=== PATIENT | female | born 1990 | race Caucasian/White ===

== ENCOUNTER → 2017-01-21 | Outpatient (CLI) | payer MEDICAID ==
[~2017-01-21] MED LIST: ALBUAER3 INH; BREAST PUMP1 MI1; MIRA3350 PO; OXYC1TAB63 PO; SENN1TAB PO; subutex
== END ==
LOC: HPND 09:22
PROVIDERS: ATTEND Family Medicine
DX: O99.322 Drug use complicating pregnancy, second trimester (principal); O09.292 Supervision of pregnancy with other poor reproductive or obstetric history, second trimester
CPT/HCPCS: 76811; 76825; 76827; 93325

== ENCOUNTER → 2017-02-27 | Outpatient (CLI) | payer MEDICAID | LOC: HPND 08:09 | PROVIDERS: ATTEND Family Medicine | DX: O99.320 Drug use complicating pregnancy, unspecified trimester (principal); Z3A.00 Weeks of gestation of pregnancy not specified | CPT/HCPCS: 76816 ==

== ENCOUNTER 2017-03-28 09:10 | Inpatient (IN) | payer MEDICAID ==
[~2017-03-28] VITALS: Ht 177.8 cm; Wt 80.3 kg
[2017-03-28] VITALS (36 sets, daily range): BP systolic 79–144; BP diastolic 43–91; PULSE 16–117; RESP 12–18; TEMP 97.8–99.2; O2SAT 99–100
[2017-03-28] MEDS: LACTATED RINGER'S 1000 ML INJ 1,000 ML IV SCH ×4 (00:30→16:49)
[~2017-03-28 09:10] MED LIST changes: -BREAST PUMP1 MI1; -MIRA3350 PO; -OXYC1TAB63 PO; -SENN1TAB PO
[2017-03-28] MEDS ORDERED: LACTATED RINGER'S 1000 ML INJ 1,000 ML IV ONE ×3 (09:20→23:45)
--- NOTE | 2017-03-28 09:29 | HHI.HP ---
HPI Chief Complaint Repeat and BTL. Date Seen: Mar 28, 2017 (Marta Angel MD R2) Travel History International Travel<30 Days: No Contact w/Intl Traveler<30Days: No (Marta Angel MD R2) History of Present Illness HPI Patient is a 26 year old at 39-0/7 weeks gestation who presents today for repeat and bilateral tubal ligation. She denies any vaginal bleeding but endorses vaginal discharge of mucous for the past several days. Yesterday at 3 PM she noticed leaking fluid that worsened when she coughed. Positive movement. Occasional contractions. care with [facility]. Current is complicated by history of drug addiction ( currently on Subutex) and an admission for PPROM/bleeding at 17 wks but membranes subsequently resealed and has progressed normally. Of note, patient has decided that she does not want the bilateral tubal ligation. (Marta Angel MD R2) History Past Medical History Narrative Medical Drug abuse Asthma with occasional rescue inhaler use (Marta Angel MD R2) Obstetric History Obstetric History for breech presentation in 2014 Elective (Marta Angel MD R2) Past Surgical History Narrative Surgical D&C (Marta Angel MD R2) Family History Family History: Negative (Marta Angel MD R2) Social History Alcohol Use: No Tobacco Use: Yes (8 cigarettes/week) Substance Abuse: No (Marta Angel MD R2) Allergies-Medications (Allergen,Severity, Reaction): Coded Allergies: Naproxen (Verified Allergy, Severe, HEART RACING, 03/17/17) Home Meds Reported Medications [subutex] No Conflict CheckUnknown Dose 12/24/16 Albuterol 8.5 GM Inh (Proair Hfa 8.5 GM Inh)90 Mcg/Act Aer1 Puff INH Q4H PRN ( SHORTNESS OF BREATH) #1 INHALER Ref 0 108 mcg/actuation 12/24/16 Review of Systems Except as stated in HPI: all other systems reviewed are Neg General / Constitutional: No: Fever, Chills Eyes: No: Blurred Vision, Visual changes HENT: No: Headaches Cardiovascular: No: Chest Pain or Discomfort Respiratory: No: Short of Breath Gastrointestinal: No: Abdominal Pain Genitourinary: Discharge, No: Pelvic Pain, Vaginal Bleeding Musculoskeletal: No: Edema Neurologic: No: Headache Psychiatric: No: Substance Abuse (Marta Angel MD R2) Physical Exam Narrative GENERAL: Well-nourished, well-developed patient. SKIN: Warm and dry. HEAD: Normocephalic and atraumatic. EYES: No scleral icterus. No injection or drainage. ENT: No nasal drainage noted. Mucous membranes pink. Airway patent. NECK: Supple, trachea midline. No JVD. CARDIOVASCULAR: Regular rate and rhythm without murmurs, gallops, or rubs. RESPIRATORY: Breath sounds equal bilaterally. No accessory muscle use. ABDOMEN/GI: Abdomen soft, non-tender, bowel sounds present, no rebound, no guarding Gravid to 39 weeks size GENITOURINARY: Cervix: Midposition Dilation: 4 Effacement: 90 Station: 0 Presentation: vertex Membranes: intact Uterine Contractions: q5-6min Membranes: SROM, clear fluid FHT's: Category: I Baseline: 142 Reactive: + Variability: moderate Decels: none EXTREMITIES: No cyanosis or edema. BACK: Nontender without obvious deformity. No CVA tenderness. NEUROLOGICAL: Awake and alert. Motor and sensory grossly within normal limits. Normal speech. (Marta Angel MD R2) Data Data Vital Signs Reviewed: Yes Orders Admit To Inpatient (03/28/17 ) Code Status (03/28/17 09:20) Vital Signs (Adult) .ON ADMISSION (03/28/17 09:20) Activity Oob Ad Hanna (03/28/17 09:20) Heart (03/28/17 09:20) Urinary Catheter Management BERNARD.Q8H (03/28/17 09:20) ^ Preps (03/28/17 09:20) Scd / Collin / Foot Pump BERNARD.QSHIFT (03/28/17 09:20) ^ Ultrasound For Locatio (03/28/17 09:20) Diet Npo (03/28/17 Breakfast) Lactated Ringer's 1000 Ml Inj (Lr 1000 M (03/28/17 09:20) Lactated Ringer's 1000 Ml Inj (Lr 1000 M (03/28/17 09:50) Citric Acid-Sodium Citrate Liq (Bicitra (03/28/17 11:00) Type And Screen (03/28/17 09:20) Complete Blood Count With Diff (03/28/17 09:20) Urinalysis - C+S If Indicated (03/28/17 09:20) Cefazolin Inj (Ancef Inj) (03/28/17 10:30) Inpatient Certification (03/28/17 ) Specimen To Be Collected PRN (03/28/17 09:20) (Marta Angel MD R2) Assessment/Plan Assessment and Plan 26 year old at 39-0/7 weeks gestation. 1. IUP- Category I tracing, reassuring. 2. SROM- grossly ruptured and amnisure positive. Counseling and education provided regarding possibility of TOLAC/ as she spontaneously went into labor. All questions and concerns were addressed. After thorough discussion, patient continues to desire repeat . 3. Repeat without BTL as patient has decided to forgo the BTL 4. GBS negative 5. History of Drug Abuse- on Subutex 8mg PO daily. Obtain UDS. dw Dr. Leija (Marta Angel MD R2) Collaborating MD Comments Agree with assessment and management (Meera Leija MD) Marta Angel MD R2 Mar 28, 2017 09:29 Meera Leija MD Mar 29, 2017 09:17
[2017-03-28 09:45] LABS: AUTOMATED NEUTROPHIL # 10.9 TH/MM3 (1.8-7.7); BASOPHIL # 0.1 TH/MM3 (0-0.2); BASOPHIL % 0.6 % (0.0-2.0); EOSINOPHIL # 0.2 TH/MM3 (0-0.4); EOSINOPHIL % 1.2 % (0.0-4.0); HEMATOCRIT 31.9 % (35.0-46.0); HEMO FLAGS DIFF FINAL; LYMPH % 15.8 % (9.0-44.0); LYMPHOCYTE # 2.2 TH/MM3 (1.0-4.8); MEAN CORPUSCULAR HEMOGLOBIN 28.5 PG (27.0-34.0); MEAN CORPUSCULAR HGB CONC 34.4 % (32.0-36.0); MONO % 5.5 % (0.0-8.0); NEUT % 76.9 % (16.0-70.0); PLATELET COUNT 221 TH/MM3 (150-450); RED BLOOD COUNT 3.84 MIL/MM3 (4.00-5.30); WHITE BLOOD COUNT 14.1 TH/MM3 (4.0-11.0)
[2017-03-28 10:02] LABS: BACTERIA, URINE OCC /hpf; BLOOD, URINE LARGE (NEG); COMMENT (UR) CULT NOT INDICATED; CULTURE IF INDICATED CULT NOT INDICATED; GLUCOSE,URINE NEG (NEG); KETONE, URINE NEG (NEG); MUCUS URINE FEW /lpf (OCC); NITRITE,URINE NEG (NEG); SQUAMOUS EPITHELIAL CELL URINE 10 /hpf (0-5); URINE COLOR YELLOW (YELLW/STRAW)
[2017-03-28 10:36] LABS: AMPHETAMINE, URINE NEG (NEG); BARBITURATES, URINE NEG (NEG); COCAINE, URINE NEG (NEG)
[2017-03-28] MEDS ORDERED: OXYTOCIN 10 UNIT/ML AMP ONE (10:44)
[2017-03-28] MEDS ORDERED: CITRIC ACID-SODIUM CITRATE LIQ 30 ML UDC PO SCH (11:00)
--- NOTE | 2017-03-28 11:58 | PD.OB.DELI ---
Procedure Note Section Procedure Pre Op Diagnosis: (1) Gestational diabetes (2) 39 weeks gestation of (3) Previous delivery affecting , antepartum Post Op Diagnosis: Performed by Meera Leija Procedure: Repeat Low Transverse Sec Indication for delivery: Desired elective repeat Informed consent obtained: For anesthesia Confirmed correct: Time-out taken Anesthesia: Spinal Medication prior to procedure: As documented in eMAR Monitoring during procedure: Blood pressure monitoring, Pulse oximetry Urinary catheter: Inserted using sterile technique, To dependent drainage Sterile preparation: Duraprep, With drapes to expose affected area Position: Supine with wedge to left side Operative Features Skin Incision: Pfannenstiel Uterine Incision: Low transverse w/knife / blunt ext Membranes Ruptured: Artificially Presentation: Occiput anterior Time of : 11:19 Delivery of infant: Uneventful Infant: Female One Minute : 9 Five Minute : 9 Weight: 3120 Status of infant: Viable Placenta delivered: Intact Medications: Antibiotics Estimated blood loss: 600 Procedure tolerated: Well Maternal Condition: Stable Condition: Stable Meera Leija MD Mar 28, 2017 11:58
[2017-03-28] MEDS ORDERED: ACETAMINOPHEN 1000 MG/100 ML VIAL IV ONE ×2 (12:00→12:38)
[2017-03-28] MEDS ORDERED: OXYTOCIN 30 UNITS-500ML PREMIX 500 ML IV ONE (12:00)
[2017-03-28] MEDS ORDERED: ACETAMINOPHEN 325 MG TAB PO PRN (12:00)
[2017-03-28] MEDS ORDERED: SODIUM CHLORIDE 0.9% FLUSH 10 ML FLUSH IV FLUSH PRN (12:00)
[2017-03-28] MEDS ORDERED: oxyCODONE/ACETAMINOPHEN 5 MG/325 MG TAB PO PRN (12:00)
[2017-03-28] MEDS ORDERED: ONDANSETRON HCL 4 MG/2 ML VIAL IV PUSH PRN (12:00)
[2017-03-28] MEDS ORDERED: ZOLPIDEM TARTRATE 5 MG TAB PO PRN (12:00)
[2017-03-28] MEDS ORDERED: MIDAZOLAM HCL 2 MG/2 ML VIAL ONE (12:13)
[2017-03-28] MEDS ORDERED: MORPHINE SULFATE PF 5 MG/10 ML VIAL ONE (12:14)
[2017-03-28] MEDS ORDERED: OXYTOCIN 30 UNITS-500ML PREMIX 500 ML ONE (12:38)
[2017-03-28] MEDS ORDERED: DEXAMETHASONE SOD PHOS 4 MG/ML VIAL IV ONE (12:55)
[2017-03-28] MEDS ORDERED: ONDANSETRON HCL 4 MG/2 ML VIAL IV PUSH ONE (12:55)
[2017-03-28] MEDS ORDERED: EPIDURAL-NALOXONE HCL 0.4 MG/ML AMP IV PRN (13:15)
[2017-03-28] MEDS ORDERED: EPIDURAL-DIPHENHYDRAMINE HCL 50 MG/ML VIAL IV PUSH PRN (13:15)
[2017-03-28] MEDS ORDERED: EPIDURAL-DO NOT ADMINISTER ANTICOAGULANTS PRN (13:15)
[2017-03-28] MEDS ORDERED: EPIDURAL-DIPHENHYDRAMINE HCL 50 MG CAP PO PRN (13:15)
[2017-03-28] MEDS ORDERED: EPIDURAL-NO SYSTEMIC NARCOTICS PRN (13:15)
[2017-03-28] MEDS ORDERED: KETOROLAC TROMETHAMINE 30 MG/ML (IVP) VIAL IV PUSH ONE (13:45)
--- NOTE | 2017-03-28 17:05 | HHI.PR ---
RETAIL CLIENT MANAGER Note Note Called to see patient stat due to dizziness and vasovagal response. S/P c- section (repeat) at 11am, uncomplicated with 600-800 cc blood loss. Nurse was check fundal exam and performing fundal massage when patient felt "dizzy with blurry vision" and began shaking. Patient c/o uterine pain with palpation but is able to articulate verbally her symptoms. States that she feel better now with some residual dizziness. Has had approx 150cc vaginal bleeding after surgery but denies chest pain, nausea/vomiting, or shortness of breath O2 sat 98%, pulse 102, bp now 92/62 (initally 80/58) Chest CTA Abdomen - soft, fundus is appropriately tender and firm. No rebound, no fluid wave. Dressing partially removed with no bleeding. No vaginal bleeding noted Assess: Possible vasovagal response, patient is improving without intervention Bolus fluids Check stat BMP and H&H to r/o intraabdominal bleeding Meera Leija MD Mar 28, 2017 17:05
[2017-03-28 17:16] LABS: HEMATOCRIT 25.6 % (35.0-46.0)
[2017-03-28 17:39] LABS: BICARBONATE 23.6 MEQ/L (21.0-32.0); POTASSIUM 4.4 MEQ/L (3.5-5.1)
[2017-03-28 20:30] LABS: HEMATOCRIT 21.6 % (35.0-46.0); REVIEW FLAG FINAL
--- NOTE | 2017-03-28 21:47 | HHI.PR ---
PRESSER ALL AROUND Note Note Patient seen and evaluated. See previous progress note. Patient has minimal complaints, some abdominal pain noted. Pulse 92, BP 92/72, O2 sat 98% Chest CTA Abdomen - Soft, some deviation of fundus to right side. No rebound tenderness noted. Good BS Uterus firm, no vaginal bleeding noted. Hct 31 to 25% to 21% Suspect intraabdominal bleed given her drop in Hct Discussed with patient need for exploration. No rooms available in Main OR due to multiple trauma. Will take patient back to L&D operating room. Meera Leija MD Mar 28, 2017 21:47
[2017-03-28] MEDS ORDERED: OXYTOCIN 30 UNITS-500ML PREMIX 500 ML IV PRN (22:00)
[2017-03-28] MEDS ORDERED: KETOROLAC TROMETHAMINE 30 MG/ML (IVP) VIAL IV PUSH PRN ×2 (22:00)
[2017-03-28] MEDS ORDERED: ceFAZolin INJ 1,000 MG VIAL ONE (22:03)
[2017-03-28] MEDS ORDERED: METHYLERGONOVINE MALEATE 0.2 MG/ML VIAL ONE (23:06)
[2017-03-28] MEDS ORDERED: DO NOT ADM ANY ANTICOAGULANT DRUGS PRN (23:45)
--- NOTE | 2017-03-28 23:52 | HHI.PR ---
Immediate Post Op Note Procedure Date: Mar 28, 2017 Pre Op Diagnosis: Post op with worsening anemia Probable intra-abdominal bleeding Post Op Diagnosis: Left uterine incision bleeding with hematoma that progressed into retroperitoneum Surgeon: Meera Leija Processing Technologist(s): OR staff Procedure: Exploratory laparotomy Evacuation of hematoma Suture of uterine incision Findings: 1. Large hematoma beginning in the uterovesico peritoneum, extending to left retroperitoneum 2. Left uterine incision corner with active bleeding 3. Normal left retroperitoneum inspection with hemostasis after ligation Additional Information: Dr Joslyn Macias consulted intraop to explore the left retroperitoneum and confirm hemostasis Estimated blood loss: 1200cc blood loss which includes the hematoma Anesthesia: General Drains: KATIE, Other (Walker catheter - 120cc) PRBC (2 units transfused intraop) Patient to: PACU Patient Condition: Good Meera Leija MD Mar 28, 2017 23:51
[2017-03-28] MEDS ORDERED: MORPHINE SULFATE 4 MG/ML INJ ONE (23:55)
[2017-03-28] MEDS ORDERED: ONDANSETRON HCL 4 MG/2 ML VIAL ONE (23:55)
[2017-03-29] VITALS (11 sets, daily range): BP systolic 110–137; BP diastolic 49–75; PULSE 76–88; RESP 14–18; TEMP 98.5–99.4; O2SAT 100
[2017-03-29] MEDS ORDERED: NALOXONE HCL 0.4 MG/ML AMP IV PRN
[2017-03-29 00:20] LABS: HEMATOCRIT 25.4 % (35.0-46.0); REVIEW FLAG FINAL
[2017-03-29] MEDS: HYDROmorphone HCL PCA 6 MG/30 ML IV SCH ×3 (00:35→19:11)
[2017-03-29] MEDS: LACTATED RINGER'S 1000 ML INJ 1,000 ML IV SCH (01:37)
[2017-03-29] MEDS: PCA - TOTAL MG DILAUDID DELIVERED PER SHIFT OTHER SCH ×3 (06:00→23:55)
[2017-03-29] MEDS: ceFAZolin 2 GM PREMIX 50 ML IV SCH ×3 (06:26→22:02)
[2017-03-29 07:21] LABS: AUTOMATED NEUTROPHIL # 13.8 TH/MM3 (1.8-7.7); BASOPHIL # 0.1 TH/MM3 (0-0.2); BASOPHIL % 0.3 % (0.0-2.0); EOSINOPHIL % 0.1 % (0.0-4.0); LYMPH % 10.6 % (9.0-44.0); LYMPHOCYTE # 1.8 TH/MM3 (1.0-4.8); MEAN CELL VOLUME 82.1 FL (80.0-100.0); MEAN CORPUSCULAR HEMOGLOBIN 28.7 PG (27.0-34.0); MEAN CORPUSCULAR HGB CONC 34.9 % (32.0-36.0); PLATELET COUNT 147 TH/MM3 (150-450); RED BLOOD COUNT 2.46 MIL/MM3 (4.00-5.30); RED CELL DISTRIBUTION WIDTH 13.5 % (11.6-17.2); WHITE BLOOD COUNT 16.6 TH/MM3 (4.0-11.0)
[2017-03-29 07:26] LABS: HEMO FLAGS DIFF FINAL
[2017-03-29 07:28] LABS: HEMATOCRIT 20.2 % (35.0-46.0)
[2017-03-29] MEDS ORDERED: SODIUM CHLOR 0.9% 250 ML INJ 250 ML IV ONE (08:30)
--- NOTE | 2017-03-29 08:30 | HHI.OB ---
Subjective Post Operative Day: 1 Remarks Patient feels well, some abdominal pain noted. Objective Vitals/I&O Vital Signs Date Time Temp Pulse Resp B/P Pulse Ox O2 Delivery O2 Flow Rate FiO2 03/29/17 06:26 16 03/29/17 06:00 16 03/29/17 05:00 99.0 100 03/29/17 05:00 80 16 115/58 03/29/17 01:00 98.5 83 14 127/75 100 03/29/17 00:45 98.5 84 14 127/84 99 Nasal Cannula 3 03/29/17 00:35 14 03/29/17 00:30 85 11 146/74 99 Nasal Cannula 3 03/29/17 00:15 92 13 142/73 100 Nasal Cannula 3 03/29/17 00:00 93 12 154/79 100 Nasal Cannula 3 03/28/17 21:30 98.7 90 18 114/68 100 03/28/17 19:15 99.1 99 03/28/17 19:15 98 18 03/28/17 19:15 99/63 03/28/17 18:36 99.2 95 18 101/64 100 03/28/17 17:45 121/54 03/28/17 17:45 70 03/28/17 17:45 100 03/28/17 17:45 16 03/28/17 17:08 85 03/28/17 17:08 100 03/28/17 17:08 93/61 03/28/17 17:01 16 18 90/48 100 03/28/17 17:00 117 03/28/17 16:51 100 03/28/17 16:51 90/62 03/28/17 16:50 100 03/28/17 16:50 81 16 79/43 03/28/17 16:48 16 03/28/17 16:47 81 79/43 100 03/28/17 13:24 97.8 73 18 144/90 03/28/17 12:53 127/81 03/28/17 12:51 98.0 99 03/28/17 12:47 77 16 03/28/17 12:46 143/86 03/28/17 12:45 99 03/28/17 12:30 77 134/74 03/28/17 12:30 99 03/28/17 12:30 15 03/28/17 12:17 75 16 130/65 03/28/17 12:15 99 03/28/17 12:11 98.0 76 14 128/81 03/28/17 10:15 79 03/28/17 10:15 80 124/72 03/28/17 10:10 83 03/28/17 10:05 82 03/28/17 10:00 84 03/28/17 10:00 87 130/77 03/28/17 09:56 83 130/81 03/28/17 09:55 85 03/28/17 09:50 86 03/28/17 09:45 85 03/28/17 09:45 88 139/91 03/28/17 09:40 85 03/28/17 09:37 12 03/28/17 09:35 89 03/28/17 09:30 94 03/28/17 09:25 96 03/28/17 09:23 98.5 03/28/17 09:22 101 143/90 Result Diagram: 03/29/17 0650 03/28/17 2090 Objective Remarks GENERAL: Well-nourished, well-developed patient. CARDIOVASCULAR: Regular rate and rhythm without murmurs, gallops, or rubs. RESPIRATORY: Breath sounds equal bilaterally. No accessory muscle use. ABDOMEN/GI: Abdomen soft, non-tender, bowel sounds present. Incision: Clean, dry and intact. Fundus: Firm, non-tender at umbilicus.(Immediately pre-op the uterus was deviated to patient's right side and pushed up above the umbilicus) GENITOURINARY: Light to moderate bleeding. EXTREMITIES: No cyanosis or edema, non-tender, without signs of DVT. KATIE has approx 50cc of liquified serosanguinous fluid Medications and IVs Current Medications Medications (Trade) Dose Ordered Sig/Marce Route Start Time Stop Time Status Last Admin Lactated Ringer's 1,000 ml @ 150 mls/hr Q6H40M IV 03/28/17 09:50 03/28/17 00:30 (Lr 1000 ml Inj) 1,000 ml @ 100 mls/hr Q10H IV 03/28/17 16:49 03/29/17 12:48 (NS Flush) 2 ml BID IV FLUSH 03/28/17 21:00 (NS Flush) 2 ml UNSCH PRN IV FLUSH 03/28/17 12:00 (Mylicon Chew) 80 mg QID PRN PO 03/28/17 12:00 (Tylenol) 650 mg Q6H PRN PO 03/28/17 12:00 (Percocet 5-325 Mg) 1 tab Q4H PRN PO 03/28/17 12:00 (Percocet 5-325 Mg) 2 tab Q4H PRN PO 03/28/17 12:00 (Shivani-Colace) 2 tab Q12H PRN PO 03/28/17 12:00 (Ambien) 5 mg HS PRN PO 03/28/17 12:00 (M-M-R Ii Inj) 0.5 ml ONCE ONCE SQ 03/29/17 16:00 03/29/17 16:01 (Boostrix Inj) 0.5 ml ONCE ONCE IM 03/29/17 16:00 03/29/17 16:01 (Zofran Inj) 4 mg Q6H PRN IV PUSH 03/28/17 12:00 Miscellaneous Information NO SYSTEMIC NARCOTICS TO BE GIVEN FO... UNSCH PRN .XX 03/28/17 13:15 03/29/17 13:14 (Narcan Inj) 0.4 mg UNSCH PRN IV 03/28/17 13:15 03/29/17 13:14 (Benadryl Inj) 25 mg Q6H PRN IV PUSH 03/28/17 13:15 03/29/17 13:14 (Benadryl) 50 mg Q6H PRN PO 03/28/17 13:15 03/29/17 13:14 Miscellaneous Information ALL NURSING DEPARTMENTS UNSCH PRN .XX 03/28/17 13:15 03/29/17 13:14 (Toradol Inj) 30 mg Q8H PRN IV PUSH 03/28/17 22:00 04/02/17 13:59 (Narcan Inj) 0.4 mg UNSCH PRN IV 03/29/17 00:00 (Dilaudid PAINT TINTER Inj) 6 mg UNSCH IV 03/29/17 00:00 03/29/17 06:26 PAINT TINTER Dosage Infused (Pha) 1 Q8HR OTHER 03/29/17 06:00 03/29/17 06:00 Miscellaneous Information ALL NURSING DEPARTME... UNSCH PRN .XX 03/28/17 23:45 03/29/17 23:44 (Ancef 2 Gm Premix) 50 ml @ 100 mls/hr Q8H IV 03/29/17 06:00 03/29/17 22:29 03/29/17 06:26 Assessment/Plan Assessment and Plan 26 year old at 39-0/7 weeks gestation. s/p repeat yesterday. Due to uterine incision bleeding at the left corner patient developed a large hematoma that tracked into the retroperitoneum. Uterine incision was sutured and Dr Quiros (trauma surgeon) scrubbed in to ensure hemostasis of the area and inspect the retroperitoneum. Approx 500cc of blood clot noted in retroperitoneum Suspect the drop in H&H is due to the equilibration of large blood loss last night. No signs of continued intraabdominal bleeding this am and the fundus is firm, below the umbilicus and no deviation is noted. Will transfuse 2 units of PRBC and 1 FFP. Check coags this am. Have discussed with the family the possiblities of hysterectomy if patient continued to bleed. I have called interventional radiology to discuss uterine artery embolization as a possibility as well. After transfusion, serial H&H will be needed to ensure no continued bleeding. Case checked out to Meera Liao MD Mar 29, 2017 08:30
[2017-03-29 11:06] LABS: INTERNATIONAL NORMALIZED RATIO 0.9 RATIO; PROTHROMBIN TIME - PATIENT 10.4 SEC (9.8-11.6)
[2017-03-29] MEDS: SIMETHICONE 80 MG CHEWABLE TAB PO PRN (13:42)
--- NOTE | 2017-03-29 14:38 | MP ---
cc: ALYSON GOMEZ M.D. DATE OF SURGERY: 03/28/2017 PREOPERATIVE DIAGNOSIS: 1. 39 weeks gestation. 2. Gestational diabetes. 3. Previous section desires repeat. POSTOPERATIVE DIAGNOSIS: 1. 39 weeks gestation. 2. Gestational diabetes. 3. Previous section desires repeat. OPERATION: Repeat low transverse section without extension. SURGEON: Alyson Gomez MD. INTERNAL INVESTIGATOR: Tonja Machado. ANESTHESIA: Spinal. DRAINS: Walker to gravity. PATHOLOGY: None. COUNTS: Correct times three. MEDICATIONS: Ancef 2 grams given preoperatively. FINDINGS 1. Normal uterus, tubes, ovaries. 2. Clear amniotic fluid. 3. male vertex presentation 3120 grams, 's of 9 and 9 to nursery. DESCRIPTION OF PROCEDURE The patient taken to the operating room, prepped and draped in the usual sterile fashion. The patient was placed in the dorsosupine position after adequate anesthetic was obtained then the Pfannenstiel incision was made in the skin, taking out the old scar and taking down to the fascia. The fascia was nicked in the midline and bilaterally taken off rectus muscles the muscles were divided midline anterior peritoneum was entered vesicouterine peritoneum was taken down in a transverse hysterotomy incision was made bluntly extended bilaterally. The 's head was delivered to the operative field. Mouth and nares bulb suction. Patient was handed off the to the to resuscitation team for subsequent care. The 45-second delayed cord clamping was accomplished in the placenta was delivered intact endometrial cavity was curetted with a moist laparotomy sponge. The hysterotomy incision repaired using running locking #1 one chromic suture with good hemostasis at closure. Gutters were rendered free of all blood and clot material. The abdominal rectus abdominous muscles were plicated together gently in the midline. He has a and O chromic suture in running fashion. Fascia was closed with a #1 PDS in running fashion, subcuticular tissue was then hemostatic with the Bovie and skin was closed with subcuticular suture of 3-0 Monocryl. The patient tolerated procedure well. She has a back to recovery in good condition. Alyson Gomez MD / /12:05 PM /2:29 PM
[2017-03-29] MEDS ORDERED: DIPHTH/TETANUS/ACEL PERTUSSIS (BOOSTER) 0.5 ML VIAL/PFS IM ONE (16:00)
[2017-03-29] MEDS ORDERED: MEASLES, MUMPS, RUBELLA VACCINE 0.5 ML VIAL SQ ONE (16:00)
--- NOTE | 2017-03-29 16:20 | MP ---
cc: ALYSON GOMEZ M.D. DATE OF SURGERY 03/28/2017 PREOPERATIVE DIAGNOSIS 1. Postop section with worsening anemia. 2. Probable intra-abdominal bleeding. The patient had a section at 11:00 a.m. this morning followed by a vasovagal episode and some mild tachycardia at 5:00 p.m. Initial hematocrit was 31 that decreased to 25% at 5:00 p.m. Another hematocrit was checked at 8:00 p.m. and it was down to 21. On examination the patient had deviation of the fundus to her right side with a possible intra-abdominal bleeding process. POSTOPERATIVE DIAGNOSIS Left uterine incisional bleeding with a hematoma that progressed into the left retroperitoneum. SURGEON Alyson Gomez MD INTRAOPERATIVE REHABILITATION MEDICINE PHYSICIAN SURGEON Dr. Joslyn Newby PROCEDURE Exploratory laparotomy with evacuation of hematoma and suture of uterine incision. DRAINS Walker to gravity, KATIE drain was placed postoperatively. ANESTHESIA General endotracheal. FINDINGS 1. Large hematoma beginning at the uterovesical peritoneum of the left side of the uterine incision extending into the left retroperitoneum. 2. Left uterine incisional corner with active bleeding. 3. Normal left retroperitoneum inspection with hemostasis after ligation. ESTIMATED BLOOD LOSS Approximately 1200 cc. total which includes the hematoma. The patient was sent to the PACU in good condition. The patient was given 2 units of packed RBCs intraoperatively and Ancef 2 grams intraoperatively. DESCRIPTION OF PROCEDURE The patient was taken to the operating room, prepped and draped using sterile fashion, placed in dorsosupine position. After general endotracheal anesthetic was placed her Pfannenstiel incision sutures were removed and then dissection was carried out into the intra-abdominal cavity. The patient had a large hematoma that began on the left side of the vesicouterine peritoneum and tracked into the left retroperitoneum. The vesicouterine peritoneum was dissected down and active bleeding was noted at the left edge of the uterine incision which was ligated with a [id number] suture. Continued evacuation was done of the hematoma and it was inspected and tracked back to the left uterine artery which was intact. The retroperitoneum was entered and the round ligament was elevated and there was no active bleeding process that I could see here. Dr. Dr. Newby scrubbed in at this point to ensure that there was adequate hemostasis and there was not an active bleeding process in the retroperitoneum or along the uterine artery. SurgiSeal was placed in the retroperitoneum and in the left side of the uterine incision. The patient was hemostatic. The laps and the sponge counts were normal. A KATIE drain was placed and pulled out through the left side of her abdominal wall. The fascia was closed with a #1 PDS and subcuticular subcutaneous tissue was made hemostatic with the Bovie. The skin was closed with a 3-0 Monocryl in a subcuticular fashion and a pressure dressing was placed. She will be taken to the PACU for recovery. MD XOCHITL Sandhu/WAYNE /12:01 AM /4:03 PM
[2017-03-29 19:14] LABS: HEMATOCRIT 25.3 % (35.0-46.0); REVIEW FLAG FINAL
--- NOTE | 2017-03-29 21:55 | HHI.OB ---
Subjective Post Day: 1 Remarks 26 year old s/p repeat at 39w yesterday with intraabdominal hemorrhage and re-exploratory laparotomy. Noted to have uterine incisional bleeding and large retroperitoneal hematoma. S/p total of 4 units PRBCs, 1 FFP. Recent hb today 8.6/25.3. Pt resting supine, no issues. Has been sipping water all day but has not eaten anything. Reports pain 7/10 due to "coughing all day" still on ANALYTICAL SCIENTIST. No nausea/ vomiting, has not been out of bed, still has hernandez. Objective Vitals/I&O Vital Signs Date Time Temp Pulse Resp B/P Pulse Ox O2 Delivery O2 Flow Rate FiO2 03/29/17 19:11 16 03/29/17 19:00 98.6 83 16 118/69 03/29/17 14:25 99.0 84 16 115/65 03/29/17 14:10 99.2 82 16 135/69 03/29/17 13:30 16 03/29/17 12:15 81 18 124/49 03/29/17 12:15 98.8 81 16 124/49 03/29/17 12:15 98.8 03/29/17 11:55 99.0 88 18 113/55 03/29/17 10:25 98.5 76 18 114/58 03/29/17 10:05 98.5 76 18 110/59 03/29/17 08:00 98.6 76 18 121/62 03/29/17 06:26 16 03/29/17 06:00 16 03/29/17 05:00 99.0 100 03/29/17 05:00 80 16 115/58 03/29/17 01:00 98.5 83 14 127/75 100 03/29/17 00:45 98.5 84 14 127/84 99 Nasal Cannula 3 03/29/17 00:35 14 03/29/17 00:30 85 11 146/74 99 Nasal Cannula 3 03/29/17 00:15 92 13 142/73 100 Nasal Cannula 3 03/29/17 00:00 93 12 154/79 100 Nasal Cannula 3 Objective Remarks GENERAL: Well-nourished, well-developed patient. CARDIOVASCULAR: Regular rate and rhythm without murmurs, gallops, or rubs. RESPIRATORY: Breath sounds equal bilaterally. No accessory muscle use. ABDOMEN/GI: Abdomen soft, non-tender, dressing in place, serosanguineous output in J/P. Fundus: Firm, appropriately-tender at umbilicus. GENITOURINARY: Light to moderate bleeding. EXTREMITIES: No cyanosis or edema, non-tender, without signs of DVT. Medications and IVs Current Medications Medications (Trade) Dose Ordered Sig/Marce Route Start Time Stop Time Status Last Admin (Lr 1000 ml Inj) 1,000 ml @ 150 mls/hr Q6H40M IV 03/28/17 09:50 03/28/17 00:30 (NS Flush) 2 ml BID IV FLUSH 03/28/17 21:00 (NS Flush) 2 ml UNSCH PRN IV FLUSH 03/28/17 12:00 (Mylicon Chew) 80 mg QID PRN PO 03/28/17 12:00 03/29/17 13:42 (Tylenol) 650 mg Q6H PRN PO 03/28/17 12:00 (Percocet 5-325 Mg) 1 tab Q4H PRN PO 03/28/17 12:00 (Percocet 5-325 Mg) 2 tab Q4H PRN PO 03/28/17 12:00 (Shivani-Colace) 2 tab Q12H PRN PO 03/28/17 12:00 (Ambien) 5 mg HS PRN PO 03/28/17 12:00 (Zofran Inj) 4 mg Q6H PRN IV PUSH 03/28/17 12:00 (Toradol Inj) 30 mg Q8H PRN IV PUSH 03/28/17 22:00 04/02/17 13:59 (Narcan Inj) 0.4 mg UNSCH PRN IV 03/29/17 00:00 (Dilaudid ANALYTICAL SCIENTIST Inj) 6 mg UNSCH IV 03/29/17 00:00 03/29/17 19:11 ANALYTICAL SCIENTIST Dosage Infused (Pha) 1 Q8HR OTHER 03/29/17 06:00 03/29/17 13:30 Miscellaneous Information ALL NURSING DEPARTME... UNSCH PRN .XX 03/28/17 23:45 03/29/17 23:44 Cefazolin Sodium/ Dextrose 50 ml @ 100 mls/hr Q8H IV 03/29/17 06:00 03/29/17 22:29 03/29/17 14:40 (NS 250 ml Inj) 250 ml @ 15 mls/hr ONCE ONCE IV 03/29/17 08:30 03/30/17 01:09 Assessment/Plan Assessment and Plan 26 year old at 39-0/7 weeks gestation. s/p repeat yesterday with re-exploration for abdominal bleeding with large retroperitoenal hematoma. S/p total of 4 units PRBCs, 1 FFP. Recent hb today 8.6/25.3. -stable h/h -incentive spirometer now -repeat labs in am -OOB if desired -if pain is well controlled d/c ANALYTICAL SCIENTIST -continue mary, d/c when ambulatory Pura Li MD Mar 29, 2017 21:55
[2017-03-30] MEDS: HYDROmorphone HCL PCA 6 MG/30 ML IV SCH (01:05)
[2017-03-30 01:41] VITALS: RESP 16
[2017-03-30 04:00] VITALS: BP 112/69; PULSE 87; RESP 18; TEMP 98.8
[2017-03-30] MEDS: DOCUSATE SODIUM 50 MG/SENNA 8.6 MG TAB PO PRN (04:26)
[2017-03-30] MEDS: SIMETHICONE 80 MG CHEWABLE TAB PO PRN (04:26)
[2017-03-30] MEDS: PCA - TOTAL MG DILAUDID DELIVERED PER SHIFT OTHER SCH (05:39)
[2017-03-30 05:43] VITALS: RESP 16
[2017-03-30 07:40] VITALS: BP 140/83; PULSE 87; RESP 20; TEMP 98.4
--- NOTE | 2017-03-30 07:49 | HHI.OB ---
Subjective Post Operative Day: 2 Remarks Patient is resting comfortably in bed. Complains of 5 out of 10 abdominal pain which is improved from previous. She feels hesitant about getting up out of bed or sitting on the edge of the bed. Denies fevers, chills, nausea, vomiting , shortness of breath. (Familia Sepulveda MD R2) Objective Vitals/I&O Vital Signs Date Time Temp Pulse Resp B/P Pulse Ox O2 Delivery O2 Flow Rate FiO2 03/30/17 05:43 16 03/30/17 05:39 16 03/30/17 04:00 87 18 112/69 03/30/17 04:00 98.8 03/30/17 01:41 16 03/30/17 01:05 16 03/29/17 23:57 137/69 03/29/17 23:57 99.4 84 18 03/29/17 23:55 18 03/29/17 19:11 16 03/29/17 19:00 98.6 83 16 118/69 03/29/17 14:25 99.0 84 16 115/65 03/29/17 14:10 99.2 82 16 135/69 03/29/17 13:30 16 03/29/17 12:15 81 18 124/49 03/29/17 12:15 98.8 81 16 124/49 03/29/17 12:15 98.8 03/29/17 11:55 99.0 88 18 113/55 03/29/17 10:25 98.5 76 18 114/58 03/29/17 10:05 98.5 76 18 110/59 03/29/17 08:00 98.6 76 18 121/62 (Familia Sepulveda MD R2) Result Diagram: 03/29/17 1853 03/28/17 1653 Objective Remarks GENERAL: Well-nourished, well-developed patient. CARDIOVASCULAR: Regular rate and rhythm without murmurs, gallops, or rubs. RESPIRATORY: Breath sounds equal bilaterally. No accessory muscle use. ABDOMEN/GI: Abdomen soft, non-tender, bowel sounds present. Incision: Clean, dry and intact. Fundus: Firm, non-tender at umbilicus.(Immediately pre-op the uterus was deviated to patient's right side and pushed up above the umbilicus) GENITOURINARY: Light to moderate bleeding. EXTREMITIES: No cyanosis or edema, non-tender, without signs of DVT. KATIE has approx 50cc of liquified serosanguinous fluid Medications and IVs Current Medications Medications (Trade) Dose Ordered Sig/Marce Route Start Time Stop Time Status Last Admin (Lr 1000 ml Inj) 1,000 ml @ 150 mls/hr Q6H40M IV 03/28/17 09:50 03/28/17 00:30 (NS Flush) 2 ml BID IV FLUSH 03/28/17 21:00 (NS Flush) 2 ml UNSCH PRN IV FLUSH 03/28/17 12:00 (Mylicon Chew) 80 mg QID PRN PO 03/28/17 12:00 03/30/17 04:26 (Tylenol) 650 mg Q6H PRN PO 03/28/17 12:00 (Percocet 5-325 Mg) 1 tab Q4H PRN PO 03/28/17 12:00 (Percocet 5-325 Mg) 2 tab Q4H PRN PO 03/28/17 12:00 (Shivani-Colace) 2 tab Q12H PRN PO 03/28/17 12:00 03/30/17 04:26 (Ambien) 5 mg HS PRN PO 03/28/17 12:00 (Zofran Inj) 4 mg Q6H PRN IV PUSH 03/28/17 12:00 (Toradol Inj) 30 mg Q8H PRN IV PUSH 03/28/17 22:00 04/02/17 13:59 (Narcan Inj) 0.4 mg UNSCH PRN IV 03/29/17 00:00 (Dilaudid RIGHT OF WAY WORKER Inj) 6 mg UNSCH IV 03/29/17 00:00 03/30/17 01:[address] WORKER Dosage Infused (Pha) 1 Q8HR OTHER 03/29/17 06:00 03/30/17 05:39 (Familia Sepulveda MD R2) Assessment/Plan Assessment and Plan 26 year old at 39-0/7 weeks gestation. s/p repeat 03/28 with re -exploration for abdominal bleeding with large retroperitoenal hematoma. S/p total of 4 units PRBCs, 1 FFP. Hemoglobin on 03/29 increased to 8.6/25.3. -stable h/h -incentive spirometer now -repeat labs in am -OOB if desired -if pain is well controlled d/c RIGHT OF WAY WORKER -continue hernandez, d/c when ambulatory (Familia Sepulveda MD R2) Attending Attestation Pt seen and examined. Stable serial cbc, pending value for this am. Pt has not gotten OOB, and has only eaten a few crackers Hernandez in place. Dilaudid communication equipment mechanic just d/c now. Subutex ordered 8mg daily. Abd: soft, appropriate tender, non-distended, +BS; appropriate j/p drain. Pulm: + rhonchi, pt not using the incentive spirometer, encourage to do so. Plan: OOB, regular diet, d/c hernandez (Pura Li MD) Familia Sepulveda MD R2 Mar 30, 2017 07:49 Pura Li MD Mar 30, 2017 09:31
[2017-03-30] MEDS: oxyCODONE/ACETAMINOPHEN 5 MG/325 MG TAB PO PRN ×3 (09:00→18:42)
[2017-03-30] MEDS: SODIUM CHLORIDE 0.9% FLUSH 10 ML FLUSH IV FLUSH SCH ×2 (09:00→21:00)
[2017-03-30] MEDS: BUPRENORPHINE HCL 8 MG SUBLINGUAL TAB SL SCH (09:00)
[2017-03-30] MEDS: LACTATED RINGER'S 1000 ML INJ 1,000 ML IV SCH (09:07)
[2017-03-30 09:37] LABS: BASOPHIL % 0.3 % (0.0-2.0); EOSINOPHIL # 0.1 TH/MM3 (0-0.4); EOSINOPHIL % 0.8 % (0.0-4.0); HEMATOCRIT 25.1 % (35.0-46.0); HEMO FLAGS DIFF FINAL; LYMPH % 9.3 % (9.0-44.0); LYMPHOCYTE # 1.3 TH/MM3 (1.0-4.8); MEAN CELL VOLUME 83.2 FL (80.0-100.0); MEAN CORPUSCULAR HEMOGLOBIN 29.4 PG (27.0-34.0); MEAN CORPUSCULAR HGB CONC 35.3 % (32.0-36.0); MONO % 5.4 % (0.0-8.0); NEUT % 84.2 % (16.0-70.0); PLATELET COUNT 132 TH/MM3 (150-450); RED BLOOD COUNT 3.02 MIL/MM3 (4.00-5.30); RED CELL DISTRIBUTION WIDTH 13.4 % (11.6-17.2); WHITE BLOOD COUNT 14.2 TH/MM3 (4.0-11.0)
[2017-03-30] MEDS ORDERED: WITCH HAZEL 50%/GLYCERIN 12.5% 40 PAD JAR TOPICAL PRN (13:15)
[2017-03-30 19:40] VITALS: BP 128/82; PULSE 85; RESP 16; TEMP 98.1
[2017-03-31] MEDS: oxyCODONE/ACETAMINOPHEN 5 MG/325 MG TAB PO PRN ×5 (01:41→19:48)
[2017-03-31] MEDS: LACTATED RINGER'S 1000 ML INJ 1,000 ML IV SCH ×3 (04:30→14:52)
[2017-03-31] MEDS: DOCUSATE SODIUM 50 MG/SENNA 8.6 MG TAB PO PRN ×2 (05:39→19:48)
--- NOTE | 2017-03-31 06:33 | HHI.OB ---
Subjective Remarks No acute issues overnight. Vitals are stable, patient remains afebrile. Vaginal bleeding is decreasing and pain is well-controlled with PO medication. She is ambulating without difficulty, voiding and stooling. She continues to have bloody drainage from her KATIE. She denies any chest pain, shortness of breath , or leg pain. Her is currently in the NICU, but she is pumping in order to breast feed and visits the [id number]. Objective Vitals/I&O Vital Signs Date Time Temp Pulse Resp B/P Pulse Ox O2 Delivery O2 Flow Rate FiO2 03/30/17 19:40 98.1 85 16 128/82 03/30/17 07:40 98.4 87 20 140/83 Result Diagram: 03/30/17 0907 03/28/17 1653 Objective Remarks GENERAL: Well-nourished, well-developed patient. CARDIOVASCULAR: Regular rate and rhythm without murmurs, gallops, or rubs. RESPIRATORY: Breath sounds equal bilaterally. No accessory muscle use. ABDOMEN/GI: Abdomen soft, non-tender, bowel sounds present. Incision: Clean, dry and intact. Fundus: Firm, non-tender at umbilicus. GENITOURINARY: Light to moderate bleeding. EXTREMITIES: No cyanosis or edema, non-tender, without signs of DVT. KATEI draining 25cc serosanguineous fluid Medications and IVs Current Medications Medications (Trade) Dose Ordered Sig/Marce Route Start Time Stop Time Status Last Admin (Lr 1000 ml Inj) 1,000 ml @ 150 mls/hr Q6H40M IV 03/28/17 09:50 03/30/17 09:07 (NS Flush) 2 ml BID IV FLUSH 03/28/17 21:00 (NS Flush) 2 ml UNSCH PRN IV FLUSH 03/28/17 12:00 (Mylicon Chew) 80 mg QID PRN PO 03/28/17 12:00 03/30/17 04:26 (Tylenol) 650 mg Q6H PRN PO 03/28/17 12:00 (Percocet 5-325 Mg) 1 tab Q4H PRN PO 03/28/17 12:00 (Percocet 5-325 Mg) 2 tab Q4H PRN PO 03/28/17 12:00 03/31/17 05:39 (Shivani-Colace) 2 tab Q12H PRN PO 03/28/17 12:00 03/31/17 05:39 (Ambien) 5 mg HS PRN PO 03/28/17 12:00 (Zofran Inj) 4 mg Q6H PRN IV PUSH 03/28/17 12:00 (Toradol Inj) 30 mg Q8H PRN IV PUSH 03/28/17 22:00 04/02/17 13:59 (Buprenorphine) 8 mg DAILY SL 03/30/17 09:00 03/30/17 09:00 (Tucks Pads) 1 applic UNSCH PRN TOPICAL 03/30/17 13:15 Assessment/Plan Problem List: (1) delivery delivered (2) Hematoma of uterus Assessment and Plan 26 year old at 39-0/7 weeks gestation. POD #3 s/p repeat on with re-exploration for abdominal bleeding with large retroperitoneal hematoma secondary to left uterine incision bleeding. -S/p 4 units PRBCs, 1 FFP. - Hgb trending up from 8.6-8.9 yesterday. Labs pending today. -Incentive spirometer -Continue routine care. -Percocet and Motrin PRN pain. -Encouraged OOB. Advised pelvic rest for 6 wks. Will need a f/u appt. in 1 wk for incision check. -Re: ctrl, she would like to consider her options. -D/c in 1-[address] MD R2 Mar 31, 2017 06:33
[2017-03-31 08:18] VITALS: BP 117/70; PULSE 70; RESP 18; TEMP 98
[2017-03-31] MEDS: SODIUM CHLORIDE 0.9% FLUSH 10 ML FLUSH IV FLUSH SCH ×2 (09:00→19:49)
[2017-03-31 09:54] LABS: MEAN CELL VOLUME 84.4 FL (80.0-100.0); MEAN CORPUSCULAR HEMOGLOBIN 29.1 PG (27.0-34.0); MEAN CORPUSCULAR HGB CONC 34.5 % (32.0-36.0); PLATELET COUNT 132 TH/MM3 (150-450); RED BLOOD COUNT 2.85 MIL/MM3 (4.00-5.30); RED CELL DISTRIBUTION WIDTH 13.3 % (11.6-17.2); REVIEW FLAG FINAL; WHITE BLOOD COUNT 11.3 TH/MM3 (4.0-11.0)
[2017-03-31] MEDS: BUPRENORPHINE HCL 8 MG SUBLINGUAL TAB SL SCH (09:55)
[2017-03-31 19:40] VITALS: BP 125/76; PULSE 72; RESP 18; TEMP 98.6
[2017-04-01] MEDS: oxyCODONE/ACETAMINOPHEN 5 MG/325 MG TAB PO PRN ×4 (00:17→13:11)
[2017-04-01] MEDS: LACTATED RINGER'S 1000 ML INJ 1,000 ML IV SCH ×2 (06:55→09:05)
--- NOTE | 2017-04-01 07:00 | HHI.OB ---
Subjective Remarks No acute issues overnight. Vitals are stable, patient remains afebrile. Vaginal bleeding is decreasing and pain is well-controlled with PO medication. She is ambulating without difficulty, voiding and stooling. She continues to have bloody drainage from her KATIE, but less today than yesterday. She denies any chest pain, shortness of breath, or leg pain. Her is currently in the NICU and she is pumping breast milk. (Marta Angel MD R2) Objective Vitals/I&O Vital Signs Date Time Temp Pulse Resp B/P Pulse Ox O2 Delivery O2 Flow Rate FiO2 03/31/17 19:40 98.6 72 18 125/76 03/31/17 08:18 98.0 70 18 117/70 (Marta Angel MD R2) Result Diagram: 03/31/17 0950 03/28/17 1653 Objective Remarks GENERAL: Well-nourished, well-developed patient. CARDIOVASCULAR: Regular rate and rhythm without murmurs, gallops, or rubs. RESPIRATORY: Breath sounds equal bilaterally. No accessory muscle use. ABDOMEN/GI: Abdomen soft, non-tender, bowel sounds present. Palpable stool. Incision: Clean, dry and intact. Fundus: Firm, non-tender at umbilicus. GENITOURINARY: Light to moderate bleeding. EXTREMITIES: No cyanosis or edema, non-tender, without signs of DVT. KATIE draining 10cc serosanguineous fluid Medications and IVs Current Medications Medications (Trade) Dose Ordered Sig/Marce Route Start Time Stop Time Status Last Admin (Lr 1000 ml Inj) 1,000 ml @ 150 mls/hr Q6H40M IV 03/28/17 09:50 03/30/17 09:07 (NS Flush) 2 ml BID IV FLUSH 03/28/17 21:00 03/31/17 19:49 (NS Flush) 2 ml UNSCH PRN IV FLUSH 03/28/17 12:00 (Mylicon Chew) 80 mg QID PRN PO 03/28/17 12:00 03/30/17 04:26 (Tylenol) 650 mg Q6H PRN PO 03/28/17 12:00 (Percocet 5-325 Mg) 1 tab Q4H PRN PO 03/28/17 12:00 (Percocet 5-325 Mg) 2 tab Q4H PRN PO 03/28/17 12:00 04/01/17 04:39 (Shivani-Colace) 2 tab Q12H PRN PO 03/28/17 12:00 03/31/17 19:48 (Ambien) 5 mg HS PRN PO 03/28/17 12:00 (Zofran Inj) 4 mg Q6H PRN IV PUSH 03/28/17 12:00 (Toradol Inj) 30 mg Q8H PRN IV PUSH 03/28/17 22:00 04/02/17 13:59 (Buprenorphine) 8 mg DAILY SL 03/30/17 09:00 03/31/17 09:55 (Tucks Pads) 1 applic UNSCH PRN TOPICAL 03/30/17 13:15 (Marta Angel MD R2) Assessment/Plan Problem List: (1) delivery delivered (2) Hematoma of uterus Assessment and Plan 26 year old s/p at 39-0/7 weeks gestation. POD #4 s/p repeat c -section on 03/28 with re-exploration for abdominal bleeding with large retroperitoneal hematoma secondary to left uterine incision bleeding. -S/p 4 units PRBCs, 1 FFP. -Hgb stable. -Incentive spirometer. -Continue routine care. -Percocet and Motrin PRN pain. - Bowel movement yesterday, stool still palpable, recommend stool softeners and miralax. -Encouraged OOB. Advised pelvic rest for 6 wks. Will need a f/u appt. in 1 wk for incision check. -Re: ctrl, she would like to consider her options. -Discharge home today. Return to floor on Friday, 04/04 for KATIE drain removal. Empty drain Q12H until then. dw Dr. Leija, Dr. Ira Keen R1 and Becca Hassan MS4 (Marta Angel MD R2) Collaborating MD Comments Patient is stable for discharge. Still putting out greater than 30cc/day via KATIE. Discharge with KATIE and home management. Follow up on Friday for KATIE removal. (Meera Leija MD) Marta Angel MD R2 Apr 01, 2017 07:00 Meera Leija MD Apr 01, 2017 09:02
[2017-04-01] MEDS ORDERED: OXYC1TAB63 PO (07:01)
[2017-04-01] MEDS ORDERED: MIRA3350 PO (07:01)
[2017-04-01] MEDS ORDERED: SENN1TAB PO (07:01)
--- NOTE | 2017-04-01 07:02 | HHI.DCPOC ---
Discharge Care Plan Diagnosis: (1) delivery delivered (2) Hematoma of uterus Report Symptoms to Your Doctor -Temperature above 100.5 degrees -Redness, of incision or excessive or foul smelling drainage -Unusual pain or calf pain -Increased vaginal bleeding -Painful or difficulty urinating -Feelings of extreme sadness or anxiety after 2 weeks Goals to Promote Your Health * To prevent worsening of your condition and complications * To maintain your health at the optimal level Directions to Meet Your Goals Take your medications as prescribed Follow your dietary instruction Follow activity as directed Ensure plenty of rest for recovery Drink fluids for hydration Keep your appointments as scheduled Take your immunizations and boosters as scheduled If your symptoms worsen call your PCP, if no PCP go to Urgent Care Center or Emergency Room Smoking is Dangerous to Your Health. Avoid second hand smoke Call the 24-hour crisis hotline for domestic abuse at Marta Angel MD R2 Apr 01, 2017 07:01
[2017-04-01 08:00] VITALS: BP 119/83; PULSE 74; RESP 18; TEMP 98.4
[2017-04-01] MEDS ORDERED: BREAST PUMP1 MI1 (08:29)
[2017-04-01] MEDS: DOCUSATE SODIUM 50 MG/SENNA 8.6 MG TAB PO PRN (09:03)
[2017-04-01] MEDS: BUPRENORPHINE HCL 8 MG SUBLINGUAL TAB SL SCH (10:31)
[2017-04-02 09:02] LABS: PHENCYCLIDINE URINE NEG (NEG)
[2017-04-02 09:04] LABS: ECSTASY (MDMA) UR NEG (NEG); HEROIN (6-ACETYLMORPHINE) UR NEG (NEG); OBMETHADONE UR NEG (NEG)
[2017-04-02 09:06] LABS: BATH SALTS (MDPV) UR NEG (NEG); GABAPENTIN UR NEG (NEG); HYDROMORPHONE U NEG (NEG); K2 SPICE UR NEG (NEG); OXYCODONE (PERCODAN) NEG (NEG)
== END 2017-04-01 17:30 | disposition home or self-care (01) | DRG 765 ==
LOC: H2EB 09:10 → H1EA 13:25
PROVIDERS: ADMIT Obstetrics & Gynecology Obstetrics; ATTEND Obstetrics & Gynecology Obstetrics
PROC: 10D00Z1 Extraction of Products of Conception, Low, Open Approach (ICD-10-PCS; principal; 2017-03-28)
PROC: 0W3R0ZZ Control Bleeding in Genitourinary Tract, Open Approach (ICD-10-PCS; 2017-03-28)
PROC: 0WJJ0ZZ Inspection of Pelvic Cavity, Open Approach (ICD-10-PCS; 2017-03-28)
PROC: 30233K1 Transfusion of Nonautologous Frozen Plasma into Peripheral Vein, Percutaneous Approach (ICD-10-PCS; 2017-03-29)
PROC: 30233N1 Transfusion of Nonautologous Red Blood Cells into Peripheral Vein, Percutaneous Approach (ICD-10-PCS; 2017-03-29)
DX: O99.334 Smoking (tobacco) complicating childbirth (principal); K66.1 Hemoperitoneum; F19.20 Other psychoactive substance dependence, uncomplicated; F17.210 Nicotine dependence, cigarettes, uncomplicated; J45.909 Unspecified asthma, uncomplicated; D50.9 Iron deficiency anemia, unspecified; O34.211 Maternal care for low transverse scar from previous cesarean delivery; O99.324 Drug use complicating childbirth; O72.2 Delayed and secondary postpartum hemorrhage; O24.429 Gestational diabetes mellitus in childbirth, unspecified control; Z37.0 Single live birth; O99.52 Diseases of the respiratory system complicating childbirth; Z3A.39 39 weeks gestation of pregnancy; O90.81 Anemia of the puerperium
CPT/HCPCS: 36430; 59025; 80048; 80307; 81001; 85014; 85018; 85025; 85027; 85384; 85610; 85730; 86803; 86850; 86900; 86901; 86920; 86927; 94150; G0481; J0131; J0690; J1100; J1170; J1885; J2210; J2250; J2270; J2274; J2405; J2590; J3010; J7120; P9016; P9017

== ENCOUNTER → 2017-04-04 | Emergency (ER) | payer MEDICAID ==
[~2017-04-04] MED LIST changes: +BREAST PUMP1 MI1; +MIRA3350 PO; +OXYC1TAB63 PO; +SENN1TAB PO
--- NOTE | 2017-04-04 17:30 | PD ---
History of Present Illness Date Seen: Apr 04, 2017 History of Present Illness This patient is a 26-year-old 3 para 2011 she is status post repeat C- section on 28 March presently 7 days postop after the section the patient had a syncopal episode and a drop by 25% in her hematocrit it was felt at that time that she may be developing bleeding intra-abdominally, she was taken back to surgery 3 operated and found to have a hematoma extending on the left side extending from the physical vaginal to the retroperitoneal area The bleeding was ligated the abdominal cavity was further explored hemostasis was achieved and a Henri-Jonas drain was placed Patient presents for removal of the Henri-Jonas drain States no major complaints no fever she is moving her bowels urinating without difficulty no weakness or dizziness Henri Jonas drain presently has about 15 cc of serosanguineous fluid no bright red bleeding The silk suture was removed and the Henri-Jonas drain was pulled without difficulty Incision is healing well with Steri-Strips applied Dressing placed over the area where the Henri-Jonas drain was removed Assessment; Status post repeat Status post evacuation of the broad ligament hematoma Status post removal of a Henri-Jonas drain with minimal drainage Plan Patient is to have a follow-up appointment in the office in the next 4-5 days She is to continue her post op care that was reviewed with her at discharge Nunu Shaikh MD Apr 04, 2017 17:29
== END | disposition home or self-care (01) ==
LOC: HOBED 16:46
DX: Z48.03 Encounter for change or removal of drains (principal); Z51.89 Encounter for other specified aftercare